=== PATIENT | female | born 1990 | race American Indian/Alaskan Native ===

== ENCOUNTER 2016-11-25 15:28 | Emergency (ER) | payer BC, MEDICAID ==
[2016-11-25 15:28] VITALS: BMI 47.9
[2016-11-25] MEDS ORDERED: Albuterol-Ipratrop 3 mg / 0.5 (3 ml) UD INH STA (16:13)
--- NOTE | 2016-11-25 16:17 | C.PDOC ---
History Of Present Illness 26 y/o female, history of morbid obesity, presents to ED with c/o chest pain for 2 days. Patient also reports that she feels subjective dyspnea. She notes that she went to another facility for evaluation, where "everything was OK". Otherwise, denies any other medical complaints. Time Seen by Provider: 11/25/16 16:04 Chief Complaint (Nursing): Chest Pain History Per: Patient History/Exam Limitations: no limitations Onset/Duration Of Symptoms: Days Current Symptoms Are (Timing): Still Present Quality: "Pain" Associated Symptoms: Dyspnea (subjective) Recent travel outside of the [place]: No Past Medical History Reviewed: Historical Data, Nursing Documentation, Vital Signs Vital Signs: Last Vital Signs Temp 98.5 F 11/25/16 20:16 Pulse 84 11/25/16 20:40 Resp 16 11/25/16 20:40 BP 127/62 11/25/16 20:40 Pulse Ox 97 11/25/16 20:40 - Medical History PMH: No Chronic Diseases Family History: States: Unknown Family Hx - Social History Hx Tobacco Use: Yes Hx Alcohol Use: No Hx Substance Use: Yes - Immunization History Hx Tetanus Toxoid Vaccination: No Hx Influenza Vaccination: Yes Hx Pneumococcal Vaccination: No Review Of Systems Except As Marked, All Systems Reviewed And Found Negative. Constitutional: Negative for: Fever, Chills Cardiovascular: Positive for: Chest Pain. Negative for: Palpitations Respiratory: Negative for: Cough, Shortness of Breath, Wheezing Gastrointestinal: Negative for: Nausea, Vomiting, Abdominal Pain Skin: Negative for: Rash Neurological: Negative for: Headache, Dizziness Physical Exam - Physical Exam Appears: Non-toxic, No Acute Distress, Other (morbidly obese) Skin: Normal Color, Warm, Dry Head: Atraumatic, Normacephalic Oral Mucosa: Moist Chest: Symmetrical Cardiovascular: Rhythm Regular, No Murmur Respiratory: Decreased Breath Sounds (diminished breath sounds bilaterally), No Rales, No Rhonchi, No Wheezing Gastrointestinal/Abdominal: Soft, No Tenderness, No Guarding, No Rebound Back: Normal Inspection Extremity: Normal ROM, Capillary Refill (< 2 sec. ) Neurological/Psych: Oriented x3, Normal Speech, Normal Cognition ED Course And Treatment - Laboratory Results Result Diagrams: 11/25/16 16:53 11/25/16 16:53 O2 Sat by Pulse Oximetry: 100 (RA) Pulse Ox Interpretation: Normal Medical Decision Making Medical Decision Making: cp r/o pe, pneumonia, bronchitis, pneumothorax l Plan: Labs, CxR, EKG ordered. Treated with duoneb. Progress Notes: pt reassesed after labs. labs unremarkbale. ct neg for pe, no leg swelling, cxr neg. pt states she feels better. speaking full sentences in nad. advise outpt f/u and return precautions. ekg wnl. acs less likely Disposition - Disposition Referrals: [facility] [Outside] [facility] [Outside] [facility] [Outside] Slava Castillo MD [Staff Provider] - Disposition: HOME/ ROUTINE Disposition Time: 07:00 Condition: STABLE Prescriptions: Albuterol HFA [Ventolin HFA 90 mcg/actuation (8 g)] 1 puff IH Q6 PRN #1 inhaler PRN Reason: Wheezing Instructions: Chest Pain (ED), Dyspnea (ED) Forms: [employer] Connect (Greek) - Clinical Impression Clinical Impression: Chest pain - Scribe Statement The provider has reviewed the documentation as recorded by the Scribalo Ruiz All medical record entries made by the Scribe were at my direction and personally dictated by me. I have reviewed the chart and agree that the record accurately reflects my personal performance of the history, physical exam, medical decision making, and the department course for this patient. I have also personally directed, reviewed, and agree with the discharge instructions and disposition.
[2016-11-25] MEDS ORDERED: Albuterol-Ipratrop 3 mg / 0.5 (3 ml) UD ONE (16:19)
[2016-11-25 16:48] LABS: RBC URINE 30 /hpf (0-3); URINE BACTERIA RARE (<OCC); URINE BILIRUBIN NEGATIVE (NEGATIVE); URINE BLOOD 3+ (NEGATIVE); URINE GLUCOSE (UA) NORMAL (Normal); URINE KETONE 1+ mg/dL (NEGATIVE); URINE LEUKOCYTE ESTERASE NEG Leu/uL (Negative); URINE PROTEIN 2+ mg/dL (NEGATIVE); URINE UROBILINOGEN NORMAL mg/dL (0.2-1.0); WBC URINE 3 /hpf (0-5)
[2016-11-25 16:51] LABS: URINE COLOR YELLOW (YELLOW)
[2016-11-25 16:58] LABS: BASO % 0.7 % (0.0-2.0); EOS % 0.5 % (0.0-4.0); HEMATOCRIT 35.5 % (34.0-47.0); LYMPH # 2.2 K/uL (1.0-4.3); LYMPH % 33.4 % (20.0-40.0); MEAN CELL VOLUME 84.3 fL (81.0-99.0); MEAN CORPUSCULAR HGB CONC 33.2 g/dL (33.0-37.0); MEAN PLATELET VOLUME 8.2 fL (7.2-11.7); MONO # 0.3 K/uL (0.0-0.8); MONO % 4.3 % (0.0-10.0); RED CELL DISTRIBUTION WIDTH 15.3 % (11.5-14.5); WHITE BLOOD COUNT 6.5 K/uL (4.8-10.8)
--- NOTE | 2016-11-25 17:04 | RAD ---
HISTORY: SOB COMPARISON: No prior. TECHNIQUE: Chest PA and lateral FINDINGS: LUNGS: No active pulmonary disease. PLEURA: No significant pleural effusion identified. No pneumothorax apparent. CARDIOVASCULAR: Normal. OSSEOUS STRUCTURES: No significant abnormalities. VISUALIZED UPPER ABDOMEN: Normal. OTHER FINDINGS: Body habitus is is large and the vague increased opacities ovary each inferolateral hemithoracic corner are attributed to summation of the prominent soft tissues IMPRESSION: No infiltrate or acute pathology appreciated.
[2016-11-25 17:12] LABS: INR 1.1
[2016-11-25 17:17] LABS: CHLORIDE 108 mmol/L (98-107)
[2016-11-25 17:18] LABS: POTASSIUM 3.8 mmol/L (3.6-5.2); SODIUM 140 mmol/L (132-148)
[2016-11-25 17:20] LABS: ALB/GLOB RATIO 1.1 (1.0-2.1); AST/SGOT 29 U/L (14-36); BILIRUBIN,TOTAL 0.6 mg/dL (0.2-1.3); CARBON DIOXIDE 22 mmol/L (22-30); GFR AFRICAN-AMERICAN > 60; TOTAL PROTEIN 7.8 g/dL (6.3-8.3)
[2016-11-25 17:21] LABS: ALKALINE PHOSPHATASE 60 U/L (38-126); ALT/SGPT 28 U/L (9-52); BLOOD UREA NITROGEN 10 mg/dL (7-17); CALCIUM 8.9 mg/dl (8.6-10.4); GLUCOSE,RANDOM 81 mg/dL (65-105)
[2016-11-25] MEDS ORDERED: Iodixanol 320 MG/ML 100 ML BOTTLE IV ONE (18:29)
--- NOTE | 2016-11-25 19:39 | CT ---
EXAM: CT Angiography Chest With Intravenous Contrast EXAM DATE/TIME: Exam ordered 11/25/2016 5:25 PM CLINICAL HISTORY: 26 years old, female; Pain and signs and symptoms; Shortness of breath; Sternal or substernal pain; Additional info: Cp elevated dimer TECHNIQUE: Axial computed tomographic angiography images of the chest with intravenous contrast using pulmonary embolism protocol. All CT scans at this facility use one or more dose reduction techniques, viz.: automated exposure control; ma/kV adjustment per patient size (including targeted exams where dose is matched to indication; i.e. head); or iterative reconstruction technique. MIP reconstructed images were created and reviewed. Coronal and sagittal reformatted images were created and reviewed. CONTRAST: 100 mL of visipaque 320 administered intravenously. COMPARISON: No relevant prior studies available. FINDINGS: Pulmonary arteries: Unremarkable. No pulmonary embolism. Aorta: No acute findings. No thoracic aortic aneurysm. Lungs: Unremarkable. No mass. No consolidation. Pleural space: Unremarkable. No significant effusion. No pneumothorax. Heart: Unremarkable. No cardiomegaly. No significant pericardial effusion. No evidence of RV dysfunction. Bones/joints: No acute fracture. No dislocation. Soft tissues: Unremarkable. Lymph nodes: Unremarkable. No enlarged lymph nodes. IMPRESSION: Normal chest CTA. No pulmonary embolism.
[2016-11-25 20:17] VITALS: TEMP 98.5
[2016-11-25 20:41] VITALS: BP 127/62; PULSE 84; RESP 16
[2016-11-25 20:52] VITALS: O2SAT 100
== END 2016-11-25 20:42 | disposition home or self-care (01) ==
LOC: C.ER 15:28
DX: R07.9 Chest pain, unspecified (principal); E66.01 Morbid (severe) obesity due to excess calories; Z87.891 Personal history of nicotine dependence
CPT/HCPCS: 71020; 71275; 80053; 81001; 84703; 85025; 85378; 85610; 85730; 99285; Q9967

== ENCOUNTER 2016-12-07 23:57 | Emergency (ER) | payer BC ==
[2016-12-07 23:57] VITALS: BMI 47.9
[2016-12-08 00:12] VITALS: RESP 20
--- NOTE | 2016-12-08 01:38 | C.PDOC ---
History Of Present Illness 26 year old female who presents to the ER with mild viral syndrome for the past week with a nonproductive cough. Patient saw PMD who gave her a Rx for albuterol which she did not fill and sent her to have allergy studies done with no abnormal results. Patient is concerned she has asthma; denies fever, chills, nausea, or vomiting. Time Seen by Provider: 12/08/16 01:25 Chief Complaint (Nursing): ENT Problem History Per: Patient History/Exam Limitations: no limitations Onset/Duration Of Symptoms: Days Current Symptoms Are (Timing): Still Present Location Of Pain: Throat Sick Contacts (Context): None Associated Symptoms: Cough. denies: Fever, Chills, Sputum, Nausea, Vomiting Ear Symptoms: Bilateral: None Recent travel outside of the [place]: No Past Medical History Reviewed: Historical Data, Nursing Documentation, Vital Signs Vital Signs: Last Vital Signs Temp 98.3 F 12/08/16 00:06 Pulse 76 12/08/16 00:06 Resp 20 12/08/16 00:06 BP 139/83 12/08/16 00:06 Pulse Ox 98 12/08/16 01:38 - Medical History PMH: Asthma Surgical History: No Surg Hx Family History: States: Unknown Family Hx - Social History Hx Tobacco Use: Yes Hx Alcohol Use: No Hx Substance Use: No - Immunization History Hx Tetanus Toxoid Vaccination: No Hx Influenza Vaccination: No Hx Pneumococcal Vaccination: No Review Of Systems Constitutional: Positive for: Other (Apnea, as per partner). Negative for: Fever, Chills Respiratory: Positive for: Cough. Negative for: Sputum Gastrointestinal: Negative for: Nausea, Vomiting Physical Exam - Physical Exam Appears: Non-toxic, No Acute Distress, Other (Morbidly obese) Skin: Normal Color, Warm, Dry Head: Atraumatic, Normacephalic Oral Mucosa: Moist Throat: Normal, No Erythema, No Exudate Neck: Normal, Supple Chest: Symmetrical, No Tenderness Cardiovascular: Rhythm Regular, No Murmur Respiratory: Normal Breath Sounds, No Rales, No Rhonchi, No Wheezing Gastrointestinal/Abdominal: Soft, No Tenderness Neurological/Psych: Oriented x3, Normal Speech, Normal Cognition ED Course And Treatment O2 Sat by Pulse Oximetry: 98 Medical Decision Making Medical Decision Making: clear lungs, normal OP ROS: + TEREZA OTC cough meds reviewed no further puffer tx required Refer for Sleep Study Disposition Doctor Will See Patient In The: Office Counseled Patient/Family Regarding: Studies Performed, Diagnosis - Disposition Referrals: Deon Perez MD [Staff Provider] - Elizabeth Vital MD [Staff Provider] - Disposition: HOME/ ROUTINE Disposition Time: 01:37 Condition: GOOD Additional Instructions: cough: DayQuil and NyQuil as directed Sleep apnea: Call Dr. Perez to make appointment for Sleep Study Weight loss: 60 mins cardio 5 days/week Follow-up with Dr. Vital as needed. Instructions: Snoring (ED), Viral Syndrome (ED) Forms: [employer] (Dominican) - Clinical Impression Clinical Impression: Viral syndrome, Sleep apnea in adult - Scribe Statement The provider has reviewed the documentation as recorded by the Scribe Stephen Bell All medical record entries made by the Scribe were at my direction and personally dictated by me. I have reviewed the chart and agree that the record accurately reflects my personal performance of the history, physical exam, medical decision making, and the department course for this patient. I have also personally directed, reviewed, and agree with the discharge instructions and disposition.
[2016-12-08] MEDS ORDERED: guaiFENesin 100 mg/5 ml Syrup UD PO STA (01:40)
[2016-12-08] MEDS ORDERED: guaiFENesin 100 mg/5 ml Syrup UD ONE (01:50)
[2016-12-08 01:51] VITALS: BP 140/86; PULSE 82; TEMP 98.1
[2016-12-08 01:52] VITALS: O2SAT 98
== END 2016-12-08 01:50 | disposition home or self-care (01) ==
LOC: C.ER 23:57
DX: G47.30 Sleep apnea, unspecified (principal); B34.9 Viral infection, unspecified

== ENCOUNTER 2016-12-12 19:44 | Emergency (ER) | payer BC ==
[2016-12-12 19:44] VITALS: BMI 47.9
[2016-12-12 19:57] VITALS: RESP 20
--- NOTE | 2016-12-12 20:24 | C.PDOC ---
History Of Present Illness 26 year old female presents to the ED with complaints of headache for three days that has been worsening today. Patient notes associated nausea and the headache is on the right side. She denies vomiting, fever, chills, weakness, or numbness. Chief Complaint (Nursing): Headache History Per: Patient History/Exam Limitations: no limitations Onset/Duration Of Symptoms: Days (3 days), Worse Since (today ) Current Symptoms Are (Timing): Still Present Quality: "Pain" Preceeding Symptoms: None Associated Symptoms: Nausea. denies: Photophobia, Blurred Vision, Vomiting, Extremity Weakness Recent travel outside of the [place]: No Past Medical History Reviewed: Historical Data, Nursing Documentation, Vital Signs Vital Signs: Last Vital Signs Temp 98.1 F 12/12/16 19:52 Pulse 67 12/12/16 19:52 Resp 20 12/12/16 19:52 BP 128/74 12/12/16 19:52 Pulse Ox 100 12/12/16 21:38 - Medical History PMH: Asthma Family History: States: Unknown Family Hx - Social History Hx Tobacco Use: Yes Hx Alcohol Use: No Hx Substance Use: No - Immunization History Hx Tetanus Toxoid Vaccination: No Hx Influenza Vaccination: No Hx Pneumococcal Vaccination: No Review Of Systems Constitutional: Negative for: Fever, Chills Gastrointestinal: Negative for: Nausea, Vomiting Neurological: Positive for: Headache. Negative for: Dizziness Physical Exam - Physical Exam Appears: Non-toxic, No Acute Distress Skin: Warm, Dry Head: Atraumatic, Normacephalic Eye(s): bilateral: Normal Inspection, PERRL, EOMI Ear(s): Bilateral: Normal Oral Mucosa: Moist Neck: Normal ROM, Supple, Other (No rigidity ) Chest: Symmetrical, No Deformity Cardiovascular: Rhythm Regular, No Murmur Respiratory: Normal Breath Sounds, No Rales, No Rhonchi, No Wheezing Gastrointestinal/Abdominal: Soft, No Tenderness, No Distention, No Guarding, No Rebound Extremity: Normal ROM, No Tenderness, Capillary Refill (good capillary refill, less than two seconds ) Neurological/Psych: Oriented x3, Normal Speech, Normal Cognition, Normal Cranial Nerves, Normal Motor, Normal Sensation, Other (no focal deficits) ED Course And Treatment - Laboratory Results Result Diagrams: 12/12/16 20:42 12/12/16 20:42 O2 Sat by Pulse Oximetry: 100 (RA) - CT Scan/US CT Head Without Intravenous Contrast Other Rad Studies (CT/US): Read By Radiologist, Radiology Report Reviewed CT/US Interpretation: FINDINGS: Brain: Unremarkable. No hemorrhage. No significant white matter disease. No edema. Ventricles: Unremarkable. No ventriculomegaly. Bones/joints: Unremarkable. No acute fracture. Soft tissues : Unremarkable. Sinuses: Unremarkable as visualized. No acute sinusitis. Mastoid air cells: Unremarkable as visualized. No mastoid effusion. IMPRESSION : Normal head/brain CT. Progress Note: Head CT, labs, and blood work were ordered. Patient was given Toradol and Reglan. On re-evalaution, patient notes she feels better and no longer has a headache. Patient would like to be discharged. Disposition Counseled Patient/Family Regarding: Diagnosis - Disposition Referrals: [facility] [Outside] Disposition: HOME/ ROUTINE Disposition Time: 21:35 Condition: STABLE Prescriptions: Ibuprofen [Motrin Tab] 600 mg PO Q6 #14 tab Nitrofurantoin Macrocrystals [Macrobid] 1 cap PO BID #14 cap Instructions: Urinary Tract Infection in Women (DC), General Headache (ED) Forms: [employer] (Latvian) - POA Present On Arrival: None - Clinical Impression Clinical Impression: Headache, Urinary tract infection - Scribe Statement The provider has reviewed the documentation as recorded by the Scribe Gina Taylor All medical record entries made by the Scribe were at my direction and personally dictated by me. I have reviewed the chart and agree that the record accurately reflects my personal performance of the history, physical exam, medical decision making, and the department course for this patient. I have also personally directed, reviewed, and agree with the discharge instructions and disposition.
[2016-12-12 20:48] LABS: BASO # 0.1 K/uL (0.0-0.2); EOS # 0.1 K/uL (0.0-0.7); EOS % 2.1 % (0.0-4.0); HEMATOCRIT 33.5 % (34.0-47.0); LYMPH # 2.6 K/uL (1.0-4.3); LYMPH % 48.5 % (20.0-40.0); MEAN CELL VOLUME 85.4 fL (81.0-99.0); MEAN CORPUSCULAR HEMOGLOBIN 28.8 pg (27.0-31.0); MEAN CORPUSCULAR HGB CONC 33.7 g/dL (33.0-37.0); MEAN PLATELET VOLUME 8.5 fL (7.2-11.7); MONO # 0.4 K/uL (0.0-0.8); MONO % 7.6 % (0.0-10.0); NRBC % 0.1 % (0.0-2.0); RED CELL DISTRIBUTION WIDTH 15.2 % (11.5-14.5); WHITE BLOOD COUNT 5.3 K/uL (4.8-10.8)
[2016-12-12 20:56] LABS: CHLORIDE 102 mmol/L (98-107); SODIUM 138 mmol/L (132-148)
[2016-12-12 20:58] LABS: ALB/GLOB RATIO 1.3 (1.0-2.1); BILIRUBIN,TOTAL 0.4 mg/dL (0.2-1.3); CARBON DIOXIDE 21 mmol/L (22-30); GFR AFRICAN-AMERICAN > 60; TOTAL PROTEIN 7.4 g/dL (6.3-8.3)
[2016-12-12 20:59] LABS: ALKALINE PHOSPHATASE 48 U/L (38-126); ALT/SGPT 37 U/L (9-52); AST/SGOT 23 U/L (14-36); BLOOD UREA NITROGEN 11 mg/dL (7-17); CALCIUM 8.8 mg/dl (8.6-10.4); GLUCOSE,RANDOM 87 mg/dL (65-105)
--- NOTE | 2016-12-12 21:07 | CT ---
EXAM: CT Head Without Intravenous Contrast EXAM DATE/TIME: Exam ordered 12/12/2016 8:05 PM CLINICAL HISTORY: 26 years old, female; Condition or disease; Headache; Headache not specified TECHNIQUE: Axial computed tomography images of the head/brain without intravenous contrast. All CT scans at this facility use one or more dose reduction techniques, viz.: automated exposure control; ma/kV adjustment per patient size (including targeted exams where dose is matched to indication; i.e. head); or iterative reconstruction technique. COMPARISON: No relevant prior studies available. FINDINGS: Brain: Unremarkable. No hemorrhage. No significant white matter disease. No edema. Ventricles: Unremarkable. No ventriculomegaly. Bones/joints: Unremarkable. No acute fracture. Soft tissues: Unremarkable. Sinuses: Unremarkable as visualized. No acute sinusitis. Mastoid air cells: Unremarkable as visualized. No mastoid effusion. IMPRESSION: Normal head/brain CT.
[2016-12-12 21:19] LABS: URINE BILIRUBIN NEGATIVE (NEGATIVE); URINE COLOR STRAW (YELLOW); URINE GLUCOSE (UA) NEGATIVE (Normal); URINE KETONE NEGATIVE (NEGATIVE)
[2016-12-12 21:20] LABS: RBC URINE 10 /hpf (0-3); URINE BACTERIA OCC (<OCC); URINE BLOOD 1+ (NEGATIVE); URINE LEUKOCYTE ESTERASE TRACE Leu/uL (Negative); URINE PROTEIN NEGATIVE (NEGATIVE); WBC URINE 5 /hpf (0-5)
[2016-12-12 22:11] VITALS: BP 128/85; PULSE 64; TEMP 97.9; O2SAT 98
[2016-12-12] MEDS ORDERED: Sodium Chloride 0.9% 1,000 ML ONE (22:45)
== END 2016-12-12 22:11 | disposition home or self-care (01) ==
LOC: C.ER 19:44
DX: R51 Headache (principal); N39.0 Urinary tract infection, site not specified
CPT/HCPCS: 70450; 80053; 81001; 84703; 85025; 87086; 96374; 96375; 99285; J1885; J2765

== ENCOUNTER 2016-12-30 14:23 | Emergency (ER) | payer BC ==
[2016-12-30 14:34] VITALS: BMI 51.7
[2016-12-30 14:35] VITALS: RESP 18
--- NOTE | 2016-12-30 16:05 | C.PDOC ---
History Of Present Illness 26yo female, morbidly obese, presents to the ED for evaluation of right sided headache, present intermittently since last night. She denies any associated photophobia or nausea. She reports similar headache in past for which she visited an ENT specialist and had a CT Head performed on 12/12/2016. Patient has an appointment with neurologist next week for evaluation of her symptoms. Patient reports she noticed a small lump on her right posterior neck and is concerned this has to do with her headache. She denies any fever, chills, neck stiffness. She offers no other medical complaints. Time Seen by Provider: 12/30/16 14:55 Chief Complaint (Nursing): Headache History Per: Patient History/Exam Limitations: no limitations Onset/Duration Of Symptoms: Persistent Current Symptoms Are (Timing): Still Present Past Medical History Reviewed: Historical Data, Nursing Documentation, Vital Signs Vital Signs: Last Vital Signs Temp 97.7 F 12/30/16 16:54 Pulse 64 12/30/16 16:54 Resp 18 12/30/16 16:54 BP 124/87 12/30/16 16:54 Pulse Ox 100 12/30/16 17:22 - Medical History PMH: Asthma Surgical History: No Surg Hx Family History: States: No Known Family Hx, Unknown Family Hx - Social History Hx Tobacco Use: Yes Hx Alcohol Use: Yes Hx Substance Use: No - Immunization History Hx Tetanus Toxoid Vaccination: No Hx Influenza Vaccination: Yes Hx Pneumococcal Vaccination: No Review Of Systems Constitutional: Negative for: Fever, Chills ENT: Negative for: Other (photophobia) Gastrointestinal: Negative for: Nausea Neurological: Positive for: Headache, Other (lump on posterior neck) Physical Exam - Physical Exam Appears: Non-toxic, Other (morbidly obese) Skin: Warm, Dry Head: Atraumatic, Normacephalic Eye(s): bilateral: PERRL, EOMI Lymphatic: No Adenopathy, Other (pea sized firm, slightly tender on palpation node noted to posterior neck.) Cardiovascular: Rhythm Regular Respiratory: Normal Breath Sounds Neurological/Psych: Oriented x3, Normal Speech, Normal Cognition, Normal Cranial Nerves ED Course And Treatment O2 Sat by Pulse Oximetry: 100 (RA) Pulse Ox Interpretation: Normal Medical Decision Making Medical Decision Making: pt reports headache still present after Toradol. Tylenol ordered Pt still uncomfortable after Tylrenol, reglan ordered. 531 pm pt feeling better. ready to go home. pt to f/u with neurology next week (already has appt) and with pmd or in clinic for further evaluation of lymph node. Disposition Counseled Patient/Family Regarding: Diagnosis, Need For Followup - Disposition Referrals: [facility] [Outside] Jose Marrero MD [Staff Provider] - Disposition: HOME/ ROUTINE Disposition Time: 17:31 Condition: IMPROVED Additional Instructions: Follow up with your neurologist next Thursday as scheduled. Follow up with your primary care doctor or in Medical clinic or with Dr Marrero (ears, nose throat) specialist for further evaluation of lymph node on right side neck in the next 1 week. Instructions: Acute Headache (ED) Forms: [employer] (Costa Rican), General Discharge Instructions - Clinical Impression Clinical Impression: Headache - PA / YACHT RIGGER / Resident Statement MD/DO has reviewed & agrees with the documentation as recorded. - Scribe Statement The provider has reviewed the documentation as recorded by the Justin Cunningham Provider Attestation All medical record entries made by the Justin were at my direction and personally dictated by me. I have reviewed the chart and agree that the record accurately reflects my personal performance of the history, physical exam, medical decision making, and the department course for this patient. I have also personally directed, reviewed, and agree with the discharge instructions and disposition.
[2016-12-30 16:55] VITALS: TEMP 97.7
[2016-12-30 17:57] VITALS: BP 122/68; PULSE 69; O2SAT 97
== END 2016-12-30 18:10 | disposition home or self-care (01) ==
LOC: SUPCPDRO 14:23 → C.ER 14:23
DX: R51 Headache (principal)
CPT/HCPCS: 96372; 99285; J1885; J2765

== ENCOUNTER 2018-02-18 18:41 | Emergency (ER) | payer BC ==
[2018-02-18 18:41] VITALS: BMI 51.7
[2018-02-18 18:49] VITALS: O2SAT 100
--- NOTE | 2018-02-18 20:12 | C.PDOC ---
History Of Present Illness 27 year old female with a history of hemorrhoids and Lyme disease presents to the ED for evaluation of nausea, vomiting, diarrhea, abdominal pain for 3 days associated with chills. The patient reports having a cold x2 weeks ago, admits to taking medication for the symptoms with some improvement. She notes working in [employer] with possible sick contact. She denies hematochezia, hematuria, recent consumption of raw foods, and any other associated symptoms. Time Seen by Provider: 02/18/18 19:52 Chief Complaint (Nursing): GI Problem History Per: Patient History/Exam Limitations: no limitations Onset/Duration Of Symptoms: Days Current Symptoms Are (Timing): Still Present Location Of Pain/Discomfort: Diffuse Recent travel outside of the [place]: No Past Medical History Reviewed: Historical Data, Nursing Documentation, Vital Signs Vital Signs: Last Vital Signs Temp 98.1 F 02/18/18 18:46 Pulse 73 02/18/18 18:46 Resp 18 02/18/18 18:46 BP 154/110 H 02/18/18 18:46 Pulse Ox 100 02/18/18 18:46 - Medical History PMH: Asthma Family History: States: Unknown Family Hx - Social History Hx Tobacco Use: Yes Hx Alcohol Use: Yes Hx Substance Use: No - Immunization History Hx Tetanus Toxoid Vaccination: No Hx Influenza Vaccination: Yes Hx Pneumococcal Vaccination: No Review Of Systems Except As Marked, All Systems Reviewed And Found Negative. (all other systems negative except as noted in the HPI.) Gastrointestinal: Positive for: Nausea, Vomiting, Abdominal Pain, Diarrhea Physical Exam - Physical Exam Additional Physical Exam Comments: Gen: VS reviewed, alert, well developed, well nourished, nontoxic, mild distress Eye: EOMI, PERRL Neck: no JVD, supple, no adenopathy CV: regular rate, regular rhythm, no rubs,no murmur, S1, S2 Pulm: no distress, clear to auscultation, no wheeze, no rhonchi, breath sounds equal, no rales Abd: soft, nontender, no guarding, no rebound, no rigidity Extremities: no edema Skin: good color, no rash, no cyanosis Psych: responds appropriately to questions, normal affect Neuro: oriented x3, CN2-12 intact grossly, motor intact, sensation intact ED Course And Treatment - Laboratory Results Result Diagrams: 02/18/18 20:24 02/18/18 20:24 O2 Sat by Pulse Oximetry: 100 (RA) Pulse Ox Interpretation: Normal Medical Decision Making Medical Decision Making: Plan: -Blood sent. POC Glucose patient was seen for benign presentatoin of vomiting and diarrhea, no fever, no abnormal po intake, no recent travel, no obvious sick contacts, labs ok, no episodes of vomiting in the ED, patient stable for discharge and follow up with her pcp. Disposition - Disposition Disposition: HOME/ ROUTINE Disposition Time: 17:33 Condition: STABLE Additional Instructions: Stay well hydrated (water). Return for any new or worsening symptoms. Follow up with your primary care doctor. Call tomorrow to make an appointment. SIDNEY GUILLORY, thank you for letting us take care of you today. Your provider was Dr. Akil Hidalgo and you were treated for vomiting and diarrhea. The emergency medical care you received today was directed at your acute symptoms. If you were prescribed any medication, please fill it and take as directed. It may take several days for your symptoms to resolve. Return to the Emergency Department if your symptoms worsen, do not improve, or if you have any other problems. Please contact your doctor or call one of the physicians/clinics you have been referred to that are listed on the Patient Visit Information form that is included in your discharge packet. Bring any paperwork you were given at discharge with you along with any medications you are taking to your follow up visit. Our treatment cannot replace ongoing medical care by a primary care provider outside of the emergency department. Thank you for allowing the [facility] team to be part of your care today. If you had an X-Ray or CT scan: A Radiologist will review the ED reading if any change in treatment is needed we will contact you. If you had a blood, urine, or wound culture: It will take several days for the results, if any change in treatment is needed we will contact you. If you had an STI test: It will take 48 hours for the results. Please call after 1 week if you have not heard back. Prescriptions: Ondansetron [Zofran] 4 mg PO Q8H #12 tab Instructions: Viral Syndrome (DC) Forms: [employer] (Nauruan), Work Excuse - Clinical Impression Clinical Impression: Vomiting, Diarrhea, Viral syndrome - Scribe Statement The provider has reviewed the documentation as recorded by the Scribe (Cassidy Emerson) Provider Attestation: All medical record entries made by the Nicoleibe were at my direction and personally dictated by me. I have reviewed the chart and agree that the record accurately reflects my personal performance of the history, physical exam, medical decision making, and the department course for this patient. I have also personally directed, reviewed, and agree with the discharge instructions and disposition.
[2018-02-18 20:27] LABS: BASO # 0.1 K/uL (0.0-0.2); BASO % 1.2 % (0.0-2.0); EOS # 0.1 K/uL (0.0-0.7); EOS % 1.5 % (0.0-4.0); HEMOGLOBIN 11.5 g/dL (11.0-16.0); LYMPH # 2.3 K/uL (1.0-4.3); MEAN CELL VOLUME 84.8 fL (81.0-99.0); MEAN CORPUSCULAR HEMOGLOBIN 28.1 pg (27.0-31.0); MEAN CORPUSCULAR HGB CONC 33.1 g/dL (33.0-37.0); MEAN PLATELET VOLUME 7.6 fL (7.2-11.7); MONO # 0.2 K/uL (0.0-0.8); MONO % 4.4 % (0.0-10.0); NEUT # 2.7 K/uL (1.8-7.0); NEUT % 50.9 % (50.0-75.0); RBC 4.11 Mil/uL (3.80-5.20); WHITE BLOOD COUNT 5.4 K/uL (4.8-10.8)
[2018-02-18 20:40] LABS: ALB/GLOB RATIO 1.1 (1.0-2.1); ALBUMIN 4.1 g/dL (3.5-5.0); ALT/SGPT 24 U/L (9-52); AST/SGOT 28 U/L (14-36); BLOOD UREA NITROGEN 13 mg/dL (7-17); GFR NON-AFRICAN AMERICAN > 60; LIPASE 38 U/L (23-300)
[2018-02-18 21:46] VITALS: BP 121/84; PULSE 70; RESP 17; TEMP 98
== END 2018-02-18 21:44 | disposition home or self-care (01) ==
LOC: C.ER 18:41
DX: B34.9 Viral infection, unspecified (principal); R11.2 Nausea with vomiting, unspecified; R19.7 Diarrhea, unspecified